=== PATIENT | male | born 1955 | race Caucasian/White ===

== ENCOUNTER 2018-01-11 14:01 | Emergency (ER) | payer OTHER ==
--- NOTE | 2018-01-11 15:40 | EDPHY ---
HPI/HX/ROS/PE/MDM Narrative: CHIEF COMPLAINT: Penile discomfort HPI: This patient is a 62 year old male with history of hypothyroid. He presents today complaining of penile discomfort ongoing for the past 4-5 days. In October, the patient had a UTI of unknown etiology which was treated successfully with a course of Cipro. About five days ago, he began to have similar symptoms to his UTI while travelling in [place]. He visited an ED there and was noted to have an elevated WBC but no UTI noted on urinalysis. He took a course of antibiotics BID for four days, discontinued on Wednesday. These did not relieve his symptoms. He currently continues to have discomfort in his penis, particularly around the urethra. He denies rash or erythema. He denies pain in his scrotum. He denies any bleeding or abnormal discharge. No change in the frequency of urination. No flank pain. He denies any new sexual partners and is in a monogamous relationship. No fever, chills, abdominal pain, vomiting , diarrhea, or other associated symptoms. REVIEW OF SYSTEMS: A comprehensive 10 system review of systems is otherwise negative aside from elements mentioned in the history of present illness and medical decision making. PMH: Hypothyroid (Synthroid). SOCIAL HISTORY: Lives in [place]. Employed. Does not abuse tobacco, drugs, or alcohol. PHYSICAL EXAM: General:Patient is alert, in no acute distress. ENT:Eyes are normal to inspection. ENT inspection normal. Neck: Normal inspection. Full range of motion. Respiratory:No respiratory distress. Breath sounds normal bilaterally. Cardiovascular: Regular rate and rhythm. Strong peripheral pulses. Normal cap refill. Abdomen:The abdomen is nontender to palpation. There are no peritoneal signs. There are normal bowel sounds. Genitourinary: Back: Normal to inspection. No tenderness to palpation. Skin: Normal color. No rash. Warm and dry. Extremities: Normal appearance. Full range of motion. Neuro: Oriented x3. Normal motor function. Normal sensory function. ED Course: 62 y/o male presents with five days of penile discomfort. He reports recent negative UA. Symptoms consistent with urethritis of unknown etiology. Plan for repeat UA to rule out UTI. Plan for GC/chlamydia test. UA negative for UTI. GC/chlamydia test pending. Reassessed patient. Discussed results. Plan to discharge home in good condition to follow up with urology. He will call back for results of his GC/chlamydia test. Follow up and return precautions discussed. He is comfortable with this plan. MDM: This patient presents with symptoms of urethritis. He has no abdominal, flank or back pain to suggest kidney stone or other abdominal pathology, and his UA is normal. External exam is negative for signs of trauma or active STD. I had an extensive discussion with patient regarding options and he is comfortable with plan for discharge home and follow-up of GC/C results rather than empiric antibiotics. He will follow-up with a Urologist ANANDA. - Data Points Laboratory Results: 01/11/18 01/11/18 14:07 14:07 Urine Color YELLOW Urine Appearance CLEAR Urine pH 5.0 (5.0-7.5) Ur Specific [place] 1.020 (1.002-1.030) Urine Protein NEGATIVE (NEGATIVE) Urine Ketones NEGATIVE (NEGATIVE) Urine Blood NEGATIVE (NEGATIVE) Urine Nitrate NEGATIVE (NEGATIVE) Urine Bilirubin NEGATIVE (NEGATIVE) Urine Urobilinogen 2.0 EU H EU (0.2-1.0) Ur Leukocyte Esterase NEGATIVE (NEGATIVE) Urine Glucose NEGATIVE (NEGATIVE) C.trachomatis RNA (TMA) Pending N.gonorrhoeae RNA (TMA) Pending General Time Seen by Provider: 01/11/18 15:12 Initial Vital Signs: Initial Vital Signs Temperature (C) 37 C 01/11/18 14:04 Heart Rate 76 01/11/18 14:04 Respiratory Rate 18 01/11/18 14:04 Blood Pressure 133/87 H 01/11/18 14:04 O2 Sat (%) 96 01/11/18 14:04 O2 Delivery Mode Room Air Allergies/Adverse Reactions: No Known Allergies Allergy (Verified 01/11/18 14:04) Home Medications: Medication Instructions Recorded Synthroid 01/11/18 Departure - Departure Disposition: Home, Routine, Self-Care Clinical Impression: Urethritis Condition: Good Instructions: Nonspecific Urethritis in Men (ED) Additional Instructions: Follow up with urology within one week. We have referred you to our urologist supervisor telephone clerks. Call back for the results of your GC/chlamydia test in 48 hours. Return for fever, increasing pain, flank pain, blood in your urine, abnormal discharge, or other concerns or worsening of condition. Referrals: Ghanshyam Ma MD [Primary Care Provider] - As per Instructions Bienvenido Mcrae MD [Medical Doctor] - As per Instructions Report Scribed for: Desean Garcia Report Scribed by: Marlene Martinez Date of Report: 01/11/18 Time of Report: 15:35 Physician Review and Approval Statement: Portions of this note were transcribed by an ED scribe. I personally performed the history, physical exam, and medical decision making; and confirm the accuracy of the information in the transcribed note.
[2018-01-11 16:04] VITALS: BP 134/92
[2018-01-12 12:49] LABS: GC AMPLIFICATION GENPROBE NEGATIVE (NEGATIVE)
== END 2018-01-11 16:04 | disposition home or self-care (01) ==
DX: N34.2 Other urethritis (principal); E03.9 Hypothyroidism, unspecified